=== PATIENT | female | born 1990 | race Two or more races ===

== ENCOUNTER 2017-10-31 14:56 | Emergency (ER) | payer MEDICARE, MEDICAID ==
[~2017-10-31] VITALS: Ht 157.5 cm; Wt 80.0 kg
[~2017-10-31 14:56] MED LIST: ACET-812 PO; ARIP5TAB4 PO; HYDR-569 PO; SERT50TA PO
[2017-10-31 15:05] VITALS: BP 131/86
[2017-10-31] MEDS ORDERED: ibuprofen tablet 400 MG TABLET PO ONE (18:30)
== END 2017-10-31 19:10 | disposition home or self-care (01) ==
LOC: ER 14:56
DX: S92.341A Displaced fracture of fourth metatarsal bone, right foot, initial encounter for closed fracture (principal); J45.909 Unspecified asthma, uncomplicated; Z98.51 Tubal ligation status; X58.XXXA Exposure to other specified factors, initial encounter; Y93.89 Activity, other specified; Y92.89 Other specified places as the place of occurrence of the external cause; Y99.8 Other external cause status; Z88.8 Allergy status to other drugs, medicaments and biological substances
CPT/HCPCS: 29515; 73630; 99284

== ENCOUNTER 2017-11-09 09:07 | Outpatient (CLI) | payer MEDICARE, MEDICAID ==
[2017-11-09 09:09] VITALS: BP 140/94
== END 2017-11-09 10:40 | disposition home or self-care (01) ==
LOC: ORTHO 09:07
PROVIDERS: ATTEND Nurse Practitioner Family
DX: S92.344A Nondisplaced fracture of fourth metatarsal bone, right foot, initial encounter for closed fracture (principal); S93.492A Sprain of other ligament of left ankle, initial encounter; J45.909 Unspecified asthma, uncomplicated; F32.9 Major depressive disorder, single episode, unspecified; F17.200 Nicotine dependence, unspecified, uncomplicated; F12.90 Cannabis use, unspecified, uncomplicated; Z88.8 Allergy status to other drugs, medicaments and biological substances; Z72.89 Other problems related to lifestyle; X58.XXXA Exposure to other specified factors, initial encounter; Y93.89 Activity, other specified; Y92.89 Other specified places as the place of occurrence of the external cause; Y99.8 Other external cause status
CPT/HCPCS: 73630; 99213

== ENCOUNTER 2017-11-23 09:01 | Outpatient (CLI) | payer MEDICARE, MEDICAID ==
[2017-11-23 09:08] VITALS: BP 130/73
== END 2017-11-23 09:45 | disposition home or self-care (01) ==
LOC: ORTHO 09:01
PROVIDERS: ATTEND Nurse Practitioner Family
DX: S90.31XD Contusion of right foot, subsequent encounter (principal); S93.492D Sprain of other ligament of left ankle, subsequent encounter; F32.9 Major depressive disorder, single episode, unspecified; J45.909 Unspecified asthma, uncomplicated; F17.210 Nicotine dependence, cigarettes, uncomplicated; Z72.89 Other problems related to lifestyle; F12.90 Cannabis use, unspecified, uncomplicated; Z88.8 Allergy status to other drugs, medicaments and biological substances; X58.XXXD Exposure to other specified factors, subsequent encounter
CPT/HCPCS: 73630; 99213

== ENCOUNTER 2021-10-04 17:36 | Emergency (ER) | payer BC, MEDICAID ==
[~2021-10-04] VITALS: Ht 157.5 cm; Wt 105.0 kg
[~2021-10-04 17:36] MED LIST changes: +ARIP5TAB14 PO; -ARIP5TAB4 PO; +HYDR-4383 PO; -HYDR-569 PO
[2021-10-04] MEDS ORDERED: LIDOCAINE 2% (20mg/ml) w/EPINEPHRINE 1:200,000-PF 10 ML inj. SQ ONE (19:00)
[2021-10-04] MEDS ORDERED: LIDOCAINE 2% w/EPI 1:100:000 30mL injection MDV**cath lab 1 only SQ ONE (19:10)
[2021-10-04] MEDS ORDERED: HYDR-3972 PO (20:58)
[2021-10-04] MEDS ORDERED: SULF1TAB49 PO (20:58)
[2021-10-04 21:06] VITALS: BP 120/84
== END 2021-10-04 21:08 | disposition home or self-care (01) ==
LOC: ER 17:37
DX: L02.512 Cutaneous abscess of left hand (principal); J45.909 Unspecified asthma, uncomplicated; F12.90 Cannabis use, unspecified, uncomplicated; Z87.19 Personal history of other diseases of the digestive system; Z98.51 Tubal ligation status; Z88.8 Allergy status to other drugs, medicaments and biological substances; Z79.899 Other long term (current) drug therapy
CPT/HCPCS: 10060; 99283

== ENCOUNTER 2023-01-25 10:28 | Emergency (ER) | payer BC, MEDICAID ==
[~2023-01-25] VITALS: Ht 170.2 cm; Wt 107.0 kg
[2023-01-25 10:37] VITALS: BP 145/93; PULSE 102; RESP 18; TEMP 97.7; O2SAT 96
[2023-01-25] MEDS ORDERED: AMOX-117 PO (13:18)
[2023-01-25] MEDS ORDERED: SULF1TAB49 PO (13:18)
[2023-01-25] MEDS ORDERED: sulfamethoxazole/trimethoprim DS (800/160mg) tablet PO ONE (13:20)
[2023-01-25] MEDS ORDERED: amox tr/potassium clavulanate 875/125mg TAB PO ONE (13:20)
== END 2023-01-25 13:37 | disposition home or self-care (01) ==
LOC: ER 10:29
DX: L03.211 Cellulitis of face (principal); J45.909 Unspecified asthma, uncomplicated; F12.90 Cannabis use, unspecified, uncomplicated; Z72.89 Other problems related to lifestyle; Z98.51 Tubal ligation status; Z88.8 Allergy status to other drugs, medicaments and biological substances; Z79.899 Other long term (current) drug therapy; Z79.2 Long term (current) use of antibiotics
CPT/HCPCS: 99283